=== PATIENT | male | born 1975 | race Caucasian/White ===

== ENCOUNTER 2019-02-22 00:14 | Emergency (ER) | payer OTHER ==
[~2019-02-22] VITALS: Ht 172.7 cm; Wt 90.7 kg
[2019-02-22] MEDS ORDERED: PRED50TA PO (00:21)
--- NOTE | 2019-02-22 00:36 | ED.ADGEN ---
Past History Past Medical History: Asthma Adult General Chief Complaint Chief Complaint ".. My asthma has flair.. I had a beer.. and cigarette.. and I got to wheezing.. and I don't have my inhaler with me...." HPI HPI Patient is a 43 year old male who presents with complaints of asthma exacerbation. Pt. left his MDI at home. Pt. has had 2- 3 prior hospitalizations for Asthma. No hx of intubations. Pt. does continue to smoke. Pt. not currently on steroids. No hx of fevers. No specific ill contacts. Review of Systems Review of Systems Constitutional: Denies fever or chills [] Eyes: Denies change in visual acuity, redness, or eye pain [] HENT: Denies nasal congestion or sore throat [] Respiratory: Complaints of wheezing Cardiovascular: No additional information not addressed in HPI [] GI: Denies abdominal pain, nausea, vomiting, bloody stools or diarrhea [] : Denies dysuria or hematuria [] Musculoskeletal: Denies back pain or joint pain [] Integument: Denies rash or skin lesions [] Neurologic: Denies headache, focal weakness or sensory changes [] Endocrine: Denies polyuria or polydipsia [] All other systems were reviewed and found to be within normal limits, except as documented in this note. Family History Family History Noncontributory to presentation Current Medications Current Medications Current Medications Medications (Trade) Dose Ordered Sig/Victor M Start Time Stop Time Status Last Admin Dose Admin Albuterol Sulfate (Ventolin Hfa Inhaler) 2 puff 1X ONCE 02/22/19 01:00 02/22/19 01:01 DC 02/22/19 00:46 2 PUFF Albuterol/ Ipratropium (Duoneb) 3 ml 1X ONCE 02/22/19 01:00 02/22/19 01:01 DC 02/22/19 00:36 3 ML Prednisone (Prednisone) 50 mg 1X ONCE 02/22/19 01:00 02/22/19 01:01 DC 02/22/19 00:51 50 MG Allergies Allergies Allergies Coded Allergies Type Severity Reaction Last Updated Verified No Known Drug Allergies 02/22/19 No Physical Exam Physical Exam Constitutional: Well developed, well nourished, mild distress, non-toxic appearance. [] HENT: Normocephalic, atraumatic, bilateral external ears normal, oropharynx moist, no oral exudates, nose normal. [] Eyes: PERRLA, EOMI, conjunctiva normal, no discharge. [] Neck: Normal range of motion, no tenderness, supple, no stridor. [] Cardiovascular:Heart rate regular rhythm, no murmur [] Lungs & Thorax: Bilateral breath sounds equal apex with scattered wheezes on auscultation [] Abdomen: Bowel sounds normal, soft, no tenderness, no masses, no pulsatile masses. [] Skin: Warm, dry, no erythema, no rash. [] Back: No tenderness, no CVA tenderness. [] Extremities: No tenderness, no cyanosis, no clubbing, ROM intact, no edema. [] No cording Neurologic: Alert and oriented X 3, normal motor function, normal sensory function, no focal deficits noted. [] Psychologic: Affect normal, judgement normal, mood normal. [] Current Patient Data Vital Signs Vital Signs Date Time Temp Pulse Resp B/P (MAP) Pulse Ox O2 Delivery O2 Flow Rate FiO2 02/22/19 01:17 87 20 110/64 (79) 95 Room Air 02/22/19 00:20 97.7 EKG EKG [] Radiology/Procedures Radiology/Procedures [] Course & Med Decision Making Course & Med Decision Making Pertinent Labs and Imaging studies reviewed. (See chart for details) Stop smoking. Use MDI 2 puffs 4 times a day. Take prednisone 50 mg a day. Follow -up primary care. Return if any concerns. Note patient reports marked improvement in symptoms and on exam marked reduction and wheezing at time of discharge [] Final Impression Final Impression 1. Asthma Exacerbation 2. Tobacco Use[] Dragon Disclaimer Dragon Disclaimer This electronic medical record was generated, in whole or in part, using a voice recognition dictation system. Discharge Summary Visit Information Final Diagnosis Problems Medical Problems: (1) Asthma Status: Acute Brief Hospital Course Allergies Allergies Coded Allergies Type Severity Reaction Last Updated Verified No Known Drug Allergies 02/22/19 No Vital Signs Vital Signs Date Time Temp Pulse Resp B/P (MAP) Pulse Ox O2 Delivery O2 Flow Rate FiO2 02/22/19 01:17 87 20 110/64 (79) 95 Room Air 02/22/19 00:20 97.7 Brief Hospital Course Mr. Pena is a 43 old male who presented with asthma exacerbation. Discharge Information Condition at Discharge: Improved, Stable Disposition/Orders: D/C to Home Dischare Medications Current Medications Albuterol Sulfate (Ventolin Hfa Inhaler) 2 puff 1X ONCE INH Last administered on 02/22/19at 00:46; Admin Dose 2 PUFF; Start 02/22/19 at 01:00; Stop 02/22/19 at 01:01; Status DC Prednisone (Prednisone) 50 mg 1X ONCE PO Last administered on 02/22/19at 00:51 ; Admin Dose 50 MG; Start 02/22/19 at 01:00; Stop 02/22/19 at 01:01; Status DC Albuterol/ Ipratropium (Duoneb) 3 ml 1X ONCE NEB Last administered on at 00:36; Admin Dose 3 ML; Start 02/22/19 at 01:00; Stop 02/22/19 at 01:01; Status DC Active Scripts Active Prednisone 50 Mg Tablet 50 Mg PO DAILY 5 Days Annie Disclaimer This chart was dictated in whole or in part using Voice Recognition software in a busy, high-work load, and often noisy Emergency Department environment. It may contain unintended and wholly unrecognized errors or omissions. ZACHARY ZULUAGA MD Feb 22, 2019 00:36
[2019-02-22] MEDS ORDERED: ALBUTEROL SULFATE 8GM INHALER. INH ONE (01:00)
[2019-02-22] MEDS ORDERED: predniSONE 10 MG TABLET PO ONE (01:00)
[2019-02-22] MEDS ORDERED: IPRATRPIUM/ALBUTEROL 0.5/2.5MG 3 ML NEBU. NEB ONE (01:00)
[2019-02-22 01:17] VITALS: BP 110/64
== END 2019-02-22 01:17 | disposition home or self-care (01) ==
LOC: ER 00:14
DX: J45.901 Unspecified asthma with (acute) exacerbation (principal); Z72.0 Tobacco use
CPT/HCPCS: 94640; 99284; J7512; J7613; J7620; 94664